=== PATIENT | female | born 1995 | race Two or more races ===

== ENCOUNTER → 2024-02-18 | Outpatient (CLI) | payer MEDICAID ==
[~2024-02-18] VITALS: Ht 160 cm; Wt 64.4 kg
== END | disposition home or self-care (01) ==
LOC: Rad HDHVI 09:18
PROVIDERS: ATTEND Internal Medicine Cardiovascular Disease
DX: I10 Essential (primary) hypertension (principal); R07.89 Other chest pain; R06.02 Shortness of breath; R00.2 Palpitations; Z82.49 Family history of ischemic heart disease and other diseases of the circulatory system
CPT/HCPCS: 78452; 93017; 96374; A9500